=== PATIENT | female | born 1985 | race Caucasian/White ===

== ENCOUNTER 2017-01-12 18:47 | Emergency (ER) | payer OTHER ==
[~2017-01-12] VITALS: Ht 152.4 cm; Wt 63.5 kg
== END 2017-01-12 21:40 | disposition home or self-care (01) ==
LOC: ED 18:47
DX: K59.00 Constipation, unspecified (principal); N83.201 Unspecified ovarian cyst, right side; F17.200 Nicotine dependence, unspecified, uncomplicated; Z90.79 Acquired absence of other genital organ(s); Z88.2 Allergy status to sulfonamides
CPT/HCPCS: 74177; 80053; 81001; 83690; 84703; 85025; 99284; Q9967

== ENCOUNTER 2018-08-13 13:08 | Emergency (ER) | payer SELFPAY ==
[~2018-08-13] VITALS: Ht 152.4 cm; Wt 65.8 kg
== END 2018-08-13 15:05 | disposition home or self-care (01) ==
LOC: ED 13:08
PROC: 0HQCXZZ Repair Left Upper Arm Skin, External Approach (ICD-10-PCS; principal; 2018-08-13)
DX: S51.812A Laceration without foreign body of left forearm, initial encounter (principal); F17.200 Nicotine dependence, unspecified, uncomplicated; Z88.2 Allergy status to sulfonamides; X78.1XXA Intentional self-harm by knife, initial encounter
CPT/HCPCS: 12002; 90471; 90715; 99282-25